=== PATIENT | female | born 1985 | race Caucasian/White ===

== ENCOUNTER 2024-10-27 19:10 | Emergency (ER) | payer BC ==
[2024-10-27] MEDS: Lidocaine 1% with EPINEPHrine 1:100,000 20 ML MDV INJECT ONE (19:38)
[2024-10-27] MEDS: Bacitracin/Neomycin/Polymyxin B Oint 0.9 GM U/D Packet TOP ONE (20:04)
== END 2024-10-27 20:10 | disposition home or self-care (01) ==
LOC: KA.ED 19:10
DX: S41.151A Open bite of right upper arm, initial encounter (principal); S51.811A Laceration without foreign body of right forearm, initial encounter; Z88.2 Allergy status to sulfonamides; W54.0XXA Bitten by dog, initial encounter
CPT/HCPCS: 12001; 99283; J2004